=== PATIENT | female | born 1985 | race Asian ===

== ENCOUNTER 2019-09-19 10:55 | Day surgery (SDC) | payer BC, OTHER ==
[2019-09-18 10:22] LABS: BASOPHILS # (AUTO) 0.04 x10^3/uL (0-0.1); BASOPHILS % (AUTO) 0 % (0-1); EOSINOPHILS # (AUTO) 0.15 x10^3/uL (0-0.4); EOSINOPHILS % (AUTO) 2 % (1-7); LYMPHOCYTES # (AUTO) 2.07 x10^3/uL (1-3.4); LYMPHOCYTES % (AUTO) 22 % (22-44); MD NO; MEAN CORPUSCULAR HEMOGLOBIN 28.6 pg (27.0-34.8); MEAN CORPUSCULAR HGB CONC 32.8 g/dL (32.4-35.8); MEAN PLATELET VOLUME 8.5 fL (7.4-10.4); MONOCYTES # (AUTO) 0.33 x10^3/uL (0.2-0.8); MONOCYTES % (AUTO) 3 % (2-9); NEUTROPHILS # (AUTO) 7.05 x10^3/uL (1.8-6.8); NEUTROPHILS % (AUTO) 73 % (42-75); PLATELET COUNT 309 x10^3/uL (130-400); RED BLOOD COUNT 5.13 x10^6/uL (3.82-5.3); RED CELL DISTRIBUTION WIDTH 13.8 % (9.6-15.2)
[2019-09-18 10:35] LABS: ANION GAP 8 mmol/L (5-15); CALCIUM 8.8 mg/dL (8.5-10.1); CHLORIDE 110 mmol/L (98-107); CREATININE 0.67 mg/dL (0.55-1.02)
[~2019-09-19] VITALS: Ht 160 cm; Wt 82.6 kg
[~2019-09-19 10:55] MED LIST: No meds per pt.
[2019-09-19 11:27] VITALS: BP 118/76
[2019-09-19] MEDS ORDERED: LACTATED RINGERS 1,000 ML IV SCH (11:48)
[2019-09-19] MEDS ORDERED: BUPIVACAINE/PF 0.25% ONE (13:10)
[2019-09-19] MEDS ORDERED: SILVER NITRATE STICK TP ONE (13:10)
[2019-09-19] MEDS ORDERED: EPINEPHRINE 1 MG/ML, 1ML ONE (13:11)
[2019-09-19] MEDS ORDERED: METHYLENE BLUE 50 MG/10 ML AMP ONE (13:14)
[2019-09-19] MEDS ORDERED: MIDAZOLAM 1 MG/ML, 2ML ONE (13:28)
[2019-09-19] MEDS ORDERED: FENTANYL PF 100 MCG/2ML ONE ×3 (13:28→15:03)
[2019-09-19] MEDS ORDERED: KETOROLAC 30 MG/1 ML ONE (13:43)
[2019-09-19] MEDS ORDERED: LIDOCAINE-MPF 2% ,5ML ONE (13:43)
[2019-09-19] MEDS ORDERED: HYDROmorphone 2 MG/ML, 1ML IVPush PRN (14:00)
[2019-09-19] MEDS ORDERED: PROMETHAZINE 25 MG/ML, 1ML IV PRN (14:00)
[2019-09-19] MEDS ORDERED: MEPERIDINE/PF 25MG/ML,1ML IVPush PRN (14:00)
[2019-09-19] MEDS ORDERED: ACETAMINOPHEN 325 MG TABLET PO PRN (14:00)
[2019-09-19] MEDS ORDERED: LABETALOL 5MG/ML, 20ML IV PRN (14:00)
[2019-09-19] MEDS ORDERED: OXYcodone 5 MG/5 ML ORAL.SOL UDC PO PRN (14:00)
[2019-09-19] MEDS ORDERED: hydrALAzine 20 MG/ML, 1ML IV PRN (14:00)
[2019-09-19] MEDS ORDERED: EPHEDRINE 50 MG/ML, 1ML ONE (14:00)
[2019-09-19] MEDS ORDERED: ONDANSETRON 2MG/ML, 2ML IV PRN (14:00)
[2019-09-19] MEDS ORDERED: FENTANYL PF 100 MCG/2ML IV PRN (14:00)
[2019-09-19] MEDS ORDERED: EPHEDRINE 50 MG/ML, 1ML IVPush PRN (14:00)
[2019-09-19] MEDS ORDERED: DEXAMETHASONE 4 MG/ML, 1ML ONE (14:12)
[2019-09-19] MEDS ORDERED: SUCCINYLCHOLINE 20 MG/ML, 10ML ONE (14:12)
[2019-09-19] MEDS ORDERED: NEOSTIGMINE 1 MG/ML, 10ML ONE (14:12)
[2019-09-19] MEDS ORDERED: ROCURONIUM 10MG/ML,5ML ONE (14:12)
[2019-09-19] MEDS ORDERED: PROPOFOL 10 MG/ML, 20ML ONE (14:12)
[2019-09-19] MEDS ORDERED: CEFAZOLIN 1,000 MG ONE (14:12)
[2019-09-19] MEDS ORDERED: ONDANSETRON 2MG/ML, 2ML ONE (14:12)
[2019-09-19] MEDS ORDERED: GLYCOPYRROLATE 0.2MG/1ML, 5ML ONE (14:12)
[2019-09-19] MEDS ORDERED: HEPARIN 1,000 UNITS/ML, 10ML ONE (14:41)
[2019-09-19] MEDS ORDERED: OXYcodone 5 MG/5 ML ORAL.SOL UDC ONE (15:53)
[2019-09-19] MEDS ORDERED: ACETAMINOPHEN 650 MG/20.3 ML UDC ONE (15:53)
== END 2019-09-19 18:20 | disposition home or self-care (01) ==
LOC: OUT 10:55
PROVIDERS: ATTEND Obstetrics & Gynecology
DX: N94.6 Dysmenorrhea, unspecified (principal); N94.10 Unspecified dyspareunia; N84.0 Polyp of corpus uteri; D27.1 Benign neoplasm of left ovary; N80.3 Endometriosis of pelvic peritoneum; Z88.8 Allergy status to other drugs, medicaments and biological substances
CPT/HCPCS: 36415; 58350; 58558; 58661; 58662; 80048; 84703; 85025; 88112; 88305; J0171; J0330; J0690; J1100; J1644; J1885; J2250; J2405; J2704; J2710; J3010; J3490; J7120; Q9968